=== PATIENT | female | born 1985 | race Caucasian/White ===

== ENCOUNTER 2018-12-22 10:06 | Emergency (ER) | payer SELFPAY ==
[~2018-12-22] VITALS: Ht 167.6 cm; Wt 64.5 kg
[~2018-12-22 10:06] MED LIST: BACTRIM DS 8001 TAB PO; NO HOME MEDICATIONS; NORCO 325 MG-7.1 TAB PO
[2018-12-22 10:12] VITALS: BP 121/58; TEMP 97.8
[2018-12-22 12:22] VITALS: PULSE 68
== END 2018-12-22 12:22 | disposition home or self-care (01) ==
LOC: COL.ER 10:06
DX: R51 Headache (principal)
CPT/HCPCS: J1200; J1885; J2765; J7030

== ENCOUNTER 2020-08-12 15:50 | Outpatient (CLI) | payer SELFPAY ==
[~2020-08-12] VITALS: Ht 162.6 cm; Wt 72.7 kg
--- NOTE | 2020-08-12 15:55 | NUR ---
Pt here for vaginal spotting after calling physician and recommended coming to be evaluated. 32.3 weeks G1 and pt very anxious and scared. Pt does not speak [place], pt's mother here and is translating for pt. Pt to [facility], explained. Pt's mother states she had some spotting yesterday and pain in the vagina last night but has not had anything further. Pt states last feeling baby move this AM. SVE by Tierra ALEXANDER and . Pt denies feeling any cramping or contractions. VSS, FHR reactive. 1625:Pt states feeling baby move at this time. Dr Roles called by Tierra ALEXANDER and orders received. See physician notification.
[2020-08-12 16:05] VITALS: BP 131/60; PULSE 75; TEMP 98.4
[2020-08-12] MEDS ORDERED: PRENATAL (16:09)
[2020-08-12 16:25] VITALS: BP 105/60; PULSE 83
[2020-08-12 16:55] VITALS: BP 114/56; PULSE 75
--- NOTE | 2020-08-12 17:10 | NUR ---
Dr Merritt here and notified of questionable contrations tracing on EFM. Orders to recheck cervix. 1715:SVE: 1+/80/-3 with bloody mucous noted on exam glove. Dr Merritt notified. Orders for IV LR and betamethasone IM now. SEE emar. 1725:betamethasone given to right buttock. IV started to left hand, LR infusing without difficulty. 1735:Dr Merritt at bedside and plan of care reviewed.
[2020-08-12 17:25] VITALS: BP 114/56; PULSE 65
[2020-08-12 17:55] VITALS: BP 113/53; PULSE 71
[2020-08-12 18:04] LABS: COLLECTION METHOD CLEAN CATCH
[2020-08-12 18:09] LABS: MUCOUS Present /lpf; PH 7 (5-8); SQUAMOUS EPITHELIAL 0-2 /hpf; URINE APPEARANCE Clear; URINE BACTERIA None Seen /hpf; URINE BILIRUBIN Negative (NEGATIVE); URINE BLOOD Negative (NEGATIVE); URINE COLOR Yellow; URINE GLUCOSE Negative (NEGATIVE); URINE KETONE Negative (NEGATIVE); URINE LEUKOCYTE ESTERASE Negative (NEGATIVE); URINE NITRATE Negative (NEGATIVE); URINE PROTEIN(semi-quant) Negative (NEGATIVE); URINE RBC 0-2 /hpf; URINE UROBILINOGEN Negative (NEGATIVE)
[2020-08-12 18:25] VITALS: BP 119/56; PULSE 73
--- NOTE | 2020-08-12 19:20 | NUR ---
1839 Dr. Merritt on unit and reviews FHR tracing and UA results. Dr. Merritt request repeat SVE by this nurse. 1844 SVE /-3, small amount of bloody mucous noted on glove. Dr. Merritt notified and orders to [place] home received. Discharge instructions reviewed with patient while friend translates. Reviewed that spotting may occur for a few days after cervical exams and to return for bright red bleeding that is like a period, to return if she thinks her water breaks, or if she begins to have contractions. Patient will return to the unit tomorrow for her 2nd betamethosone injection and follow up with Dr. Merritt at her next appointment on August 20.
== END 2020-08-12 19:20 | disposition home or self-care (01) ==
LOC: LDRO 15:50 → LDR 16:22 → LDRO 19:20
PROVIDERS: Obstetrics & Gynecology
DX: O26.853 Spotting complicating pregnancy, third trimester (principal); Z3A.32 32 weeks gestation of pregnancy
CPT/HCPCS: OP; J0702; J7120

== ENCOUNTER 2020-08-13 17:09 | Outpatient (CLI) | payer SELFPAY ==
[~2020-08-13] VITALS: Ht 162.6 cm; Wt 72.7 kg
[~2020-08-13 17:09] MED LIST changes: +PRENATAL
--- NOTE | 2020-08-13 17:20 | NUR ---
1720- Pt arrives on unit ambulatory for monitoring and second dose of Betamethasone. 1722- EFM and TOCO on and tracing. Pt denies VB, LOF, or UCs. +FM. 1754- EFM and TOCO off after reactive NST noted. Angeli RN assumes care at this time.
[2020-08-13 17:53] VITALS: BP 108/55; PULSE 72; TEMP 98.2
--- NOTE | 2020-08-13 17:56 | NUR ---
Betamethasone shot given per orders to left buttock. 0: Discharge instructions explained to pt and mother who verbalize their understanding. Pt ambulatory off unit and home with family.
== END 2020-08-13 18:10 | disposition home or self-care (01) ==
LOC: LDRO 17:09
DX: O36.8330 Maternal care for abnormalities of the fetal heart rate or rhythm, third trimester, not applicable or unspecified (principal); Z3A.32 32 weeks gestation of pregnancy
CPT/HCPCS: J0702

== ENCOUNTER 2020-09-06 12:07 | Outpatient (CLI) | payer SELFPAY ==
[~2020-09-06] VITALS: Ht 162.6 cm; Wt 71.8 kg
--- NOTE | 2020-09-06 11:50 | NUR ---
Pt here from ER with c/o ?SROM at 1130 today. Pt does not speak [place] but pt has a friend here to translate. Pt states she had one gush and has not had any leaking since and pt denies any contractions. 36 weeks G1. VSS, afebrile. SVE per Isabell ALEXANDER, and amniotrace negative. White mucous noted but no fluid or bleeding noted on exam glove. Assessment complete. Pt with hx of placenta previa but resolved at 20 weeks. FHR baseline 140bpm with and accels noted. Pt also having recurrent variables. FHR decreasing to 110bpm 15-20 seconds. 1217: Dr Merritt called and notified. Will continue to monitor FHR at this time and will reassess.
[2020-09-06 12:07] VITALS: BP 106/60; PULSE 73; TEMP 98.2
[2020-09-06 12:20] VITALS: BP 106/60; PULSE 78; TEMP 98.2
--- NOTE | 2020-09-06 13:03 | NUR ---
Dr. Merritt notified. Requested to review FHR strip. Ok to discharge home with follow up in office tomorrow. Pt taken off monitors. Discharge instructions given. [employer] Work[employer] used. No questions or concerns at this time.
[2020-09-06 13:06] VITALS: PULSE 75
== END 2020-09-06 13:15 | disposition home or self-care (01) ==
LOC: LDRO 12:07
DX: O42.913 Preterm premature rupture of membranes, unspecified as to length of time between rupture and onset of labor, third trimester (principal); Z3A.36 36 weeks gestation of pregnancy

== ENCOUNTER 2020-09-06 18:07 | Inpatient (IN) | payer SELFPAY ==
[~2020-09-06] VITALS: Ht 162.6 cm; Wt 71.8 kg
[2020-09-06] VITALS (18 sets, daily range): BP systolic 65–147; BP diastolic 30–88; PULSE 61–88; TEMP 98–98.1
[2020-09-06 20:00] LABS: BASO % 0.2 % (0.0-2.0); EOS # 0.1 (0.0-0.7); EOS % 1.3 % (0-4.0); GRAN # 5.5 (1.4-6.5); GRAN % 66.2 % (42.2-75.2); HEMOGLOBIN 12.2 g/dl (12.5-16.0); LYMPH % 24.4 % (20.0-51.0); MEAN CELL VOLUME 98 fl (80.0-100.0); MEAN CORPUSCULAR HEMOGLOBIN 34 pg (27.0-31.0); MEAN CORPUSCULAR HGB CONC 35 g/dl (33.0-37.0); MEAN PLATELET VOLUME 10.7 fl (7.4-10.4); MONO # 0.6 (0.1-0.6); MONO % 7.5 % (1.7-9.3); PLATELET COUNT 291 K/mm3 (130-400); RED BLOOD COUNT 3.61 M/mm3 (4.10-5.30); REDCELL DISTRIBUTION WIDTH-CV 12.5 % (11.5-14.5)
[2020-09-06 20:04] LABS: HEMATOCRIT 35.4 % (37.0-47.0)
--- NOTE | 2020-09-06 20:50 | NUR ---
2027- Jorge LEON CRNA IN ROOM FOR EPIDURAL PLACEMENT. PT SITTING UP AT BEDSIDE. BP SET TO EVERY 5 MINUTES, PULSE OX IN PLACE. DIFFICULTY TRACING FHT'S AT THIS TIME DUE TO MATENAL POSITION FOR EPIDURAL. ATTEMPTING TO ADJUST MONITOR AT THIS TIME. 2044- TEST DOSE GIVEN BY Jorge LEON CRNA, PT TOLERATED WELL. 2049-PT REPOSITIONED INTO SEMIFOWLERS FOLLOWING EPIDURAL PLACEMENT. US ADJUSTED AT THIS TIME. FHT'S NOW TRACING IN THE 120'S.
--- NOTE | 2020-09-06 21:17 | NUR ---
BP DROPPED TO 65/30, PT STATES HEADACHE, LIGHTHEADEDNESS, AND WAS IN AND OUT OF CONSCIOUSNESS BUT WOULD OPEN HER EYES TO VERBAL STIMULATION. 10MG OF EPHEDRINE GIVEN IV AT 2117. BP INCREASED TO 104/68 BUT PT REMAINS SYMPTOMATIC. 2ND DOSE OF 10MG OF EPHEDRINE GIVEN AT 2122. BP AT 2127 OF 111/57, PT STATES FEELING BETTER, WREN AND LIGHTHEADEDNESS RESOLVED.
[2020-09-07] VITALS (37 sets, daily range): BP systolic 87–124; BP diastolic 51–81; PULSE 56–90; TEMP 97.6–98.7
--- NOTE | 2020-09-07 06:31 | NUR ---
0540- SVE OF COMPLETE 0605- THIS NURSE BEGINS PUSHING WITH PT. 0614- PT PUSHING WELL. DR. CHURCHILL NOTIFIED OF IMPENDING DELIVERY. WILL COME TO HOSPITAL NOW. 06- DR. CHURCHILL IN ROOM FOR DELIVERY. 0630- SPONTANEOUS VAGINAL DELIVERY OF VIABLE BABY GIRL , NUCHAL CORD X1, CORD DETACHED AT THE PLACENTA WHEN CORD WAS REDUCED. DR. CHURCHILL CLAMPED CORD. BABY TO MOTHER'S CHEST, BABY CARES ASSUMED BY Siria CHÁVEZ RN. 0631-MANUAL REMOVAL OF INTACT PLACENTA. DR. HCURCHILL ORDERS FOR PLACENTA BE SENT TO PATHOLOGY FOR .
--- NOTE | 2020-09-07 18:35 | NUR ---
Report recieved. Resting in bed while eating dinner. Updated whiteboard and reviewed POC. Denied questions or concerns.
[2020-09-08] VITALS: BP 102/58; PULSE 65; TEMP 98.5
[2020-09-08 08:30] VITALS: BP 107/59; PULSE 66; TEMP 98.5
[2020-09-08] MEDS ORDERED: MOTRIN 800800 MG/TAB PO (10:19)
[2020-09-08 11:20] VITALS: BP 110/75; PULSE 71; TEMP 97.4
[2020-09-08 16:00] VITALS: BP 102/56; PULSE 67; TEMP 98
[2020-09-08 20:00] VITALS: BP 121/67; PULSE 68; TEMP 98.3
[2020-09-09 01:50] VITALS: BP 124/62; PULSE 88; TEMP 97.8
[2020-09-09 08:51] VITALS: BP 114/65; PULSE 75; TEMP 97.9
== END 2020-09-09 15:10 | disposition home or self-care (01) | DRG 807 ==
LOC: LDRO 18:07 → LDR 19:03 → OB 09-07 08:58
PROVIDERS: Obstetrics & Gynecology; ADMIT Obstetrics & Gynecology
PROC: 10E0XZZ Delivery of Products of Conception, External Approach (ICD-10-PCS; principal; 2020-09-07)
PROC: 0KQM0ZZ Repair Perineum Muscle, Open Approach (ICD-10-PCS; 2020-09-07)
DX: O70.1 Second degree perineal laceration during delivery (principal); Z37.0 Single live birth; Z3A.01 Less than 8 weeks gestation of pregnancy
CPT/HCPCS: J2540; J2590; J7120